=== PATIENT | male | born 1985 | race Caucasian/White ===

== ENCOUNTER 2023-06-05 12:26 | Day surgery (SDC) | payer SELFPAY ==
[2023-06-05 13:03] LABS: Potassium 4.1 mEq/L (3.5-5.1)
[2023-06-05] MEDS ORDERED: Ringers Lactate 1,000 ML IV ONE (13:07)
[2023-06-05] MEDS: METHYLENE BLUE 1% 10 ML VIAL ONE ×2 (13:48→14:45)
[2023-06-05] MEDS: BUPIVACAINE 0.25% PF 30 ML VIAL ONE ×2 (13:48→15:00)
[2023-06-05] MEDS: CEFAZOLIN SODIUM 2 GM/VIAL ONE ×2 (13:48→14:05)
[2023-06-05] MEDS ORDERED: FENTANYL CITR 100 MCG/2 ML ONE ×2 (14:04→14:49)
[2023-06-05] MEDS ORDERED: MIDAZOLAM HCL 2 MG/2 ML INJ ONE (14:04)
[2023-06-05] MEDS ORDERED: propofoL 200 MG/20 ML VIAL IV ONE (14:04)
[2023-06-05] MEDS ORDERED: LIDOCAINE 2% MPF 5 ML VIAL ONE (14:04)
[2023-06-05] MEDS ORDERED: ROCURONIUM 50 MG/5 ML VIAL IV ONE ×2 (14:04→15:00)
[2023-06-05] MEDS ORDERED: ONDANSETRON 4 MG/2 ML VIAL ONE (14:05)
[2023-06-05] MEDS ORDERED: dexAMETHasone 4 MG/ML VIAL ONE (14:05)
[2023-06-05] MEDS ORDERED: GLYCOPYRROLATE 0.2 MG/ML SYR ONE (14:25)
[2023-06-05] MEDS ORDERED: KETOROLAC 30 MG/ML INJ ONE (14:50)
[2023-06-05] MEDS ORDERED: SUGAMMADEX SODIUM 200 MG/2 ML VIAL IV ONE (15:00)
--- NOTE | 2023-06-05 15:07 | P.OP ---
Preoperative diagnosis: Pilonidal Cyst with Sinus Postoperative diagnosis: Pilonidal Cyst with Sinus Primary procedure: Wide Local Excision of Pilonidal Cyst with Sinus Anesthesia: GETA + Local Estimated blood loss: <10cc Specimen: Debridement Tissue Findings: ~ 6cm x 5 cm x 5 cm ~ down to adipose Complications: None Transferred to: Recovery Room Condition: Good
[2023-06-05 15:42] VITALS: O2SAT 96
--- NOTE | 2023-06-05 15:50 | OP ---
Date of Procedure: 06/05/2023 Surgeon: Marques Rivas MD, Preoperative Diagnosis: Pilonidal cyst with sinus. Postoperative Diagnosis: Pilonidal cyst with sinus. Procedure Performed: Wide local excision of pilonidal cyst with sinus. Anesthesia: General endotracheal plus local with 0.25% Marcaine. Estimated Fluid Loss: 2 cc. Specimen: Debridement of tissue. Findings: 6 cm x 5 cm x 5 cm down to adipose tissues pilonidal cyst in the superior jess cleft exte nding approximately 1.5 to 2 cm from the anal verge. Complications: None. Patient was transferred to recovery room in good condition. Procedure In Detail: After informed consent was obtained, patient was brought to the operating room, prepped and draped in the usual sterile fashion. After adequate anesthesia was achieved, I inspecte d the superior cleft. There were several small punctate holes methylene blue using an Angiocath without needle. This filled the entire cavity and multiple small punctate areas of leak age were appreciated consistent with a pilonidal sinus. I then dissected down circumferentially arou nd this area using a 15 blade down to subcutaneous tissues for approximately 5 cm x 6 cm. Electrocau delbert was used to dissect down circumferentially around to remove all pilonidal affected tissues inclu ding methylene blue tainted tissues. This was sent off for pathologic examination. I then achieved hemostasis with electrocautery. No evidence of communication with the rectal vault. Anus was apprec iated at this point. It came close to and abutted near the musculature of the anus, but did not invo lve directly. After hemostasis was achieved with electrocautery, the area was copiously irrigated wi th approximately a liter of saline and packed with Vashe, Kerlix, and sterile dressings were placed o giuliana top. Patient tolerated the procedure well without evidence of complication and transferred to [facility] in good condition. All counts were correct at the end of the case. TK/MODL Voice ID: [id number] Report ID: [id number]
[2023-06-05 16:01] VITALS: TEMP 97.5
[2023-06-05 16:08] VITALS: BP 146/97
== END 2023-06-05 16:20 | disposition home or self-care (01) ==
LOC: OR 12:26
PROVIDERS: ATTEND Surgery
PROC: 0JB90ZZ Excision of Buttock Subcutaneous Tissue and Fascia, Open Approach (ICD-10-PCS; principal; 2023-06-05 14:15)
DX: L05.91 Pilonidal cyst without abscess (principal)
CPT/HCPCS: 36415; 80048; 88304; 93005; J1100; J2001; J2250; J2405; J2704; J3010; J7120